=== PATIENT | female | born 1945 | race Two or more races ===

== ENCOUNTER 2021-03-07 07:43 | Emergency (ER) | payer BC ==
[~2021-03-07] VITALS: Ht 154.9 cm; Wt 64.0 kg
[2021-03-07] MEDS ORDERED: IBUPROFEN 600MG TABLET PO STA (08:28)
[2021-03-07] MEDS ORDERED: IBUP-2029 MT (09:31)
[2021-03-07 10:17] VITALS: BP 136/72
== END 2021-03-07 10:16 | disposition home or self-care (01) ==
LOC: ER 08:03
DX: S09.8XXA Other specified injuries of head, initial encounter (principal); E78.00 Pure hypercholesterolemia, unspecified; I10 Essential (primary) hypertension; W18.39XA Other fall on same level, initial encounter; Y93.89 Activity, other specified; Y92.89 Other specified places as the place of occurrence of the external cause; Y99.8 Other external cause status; Z90.710 Acquired absence of both cervix and uterus
CPT/HCPCS: 99284